=== PATIENT | female | born 1990 | race Asian ===

== ENCOUNTER 2017-01-03 18:40 | Outpatient (CLI) | payer BC ==
[~2017-01-03] VITALS: Ht 157.5 cm; Wt 70.5 kg
[2017-01-03 18:44] VITALS: BP 110/66
[2017-01-03] MEDS ORDERED: PREN1TAB60 PO (18:44)
== END 2017-01-03 20:15 | disposition home or self-care (01) ==
LOC: LDOP 18:40
PROVIDERS: ATTEND Student in an Organized Health Care Education/Training Program
DX: O26.892 Other specified pregnancy related conditions, second trimester (principal); O46.92 Antepartum hemorrhage, unspecified, second trimester; R10.9 Unspecified abdominal pain; Z3A.20 20 weeks gestation of pregnancy
CPT/HCPCS: 59025; 81003; 87086; 99201; G0463

== ENCOUNTER 2017-05-05 17:33 | Outpatient (CLI) | payer BC ==
[~2017-05-05] VITALS: Ht 157.5 cm; Wt 79.0 kg
[~2017-05-05 17:33] MED LIST: PREN1TAB60 PO
[2017-05-05 17:58] VITALS: BP 109/68
== END 2017-05-05 19:45 | disposition home or self-care (01) ==
LOC: LDOP 17:33
PROVIDERS: ATTEND Obstetrics & Gynecology
DX: O36.8130 Decreased fetal movements, third trimester, not applicable or unspecified (principal); O62.9 Abnormality of forces of labor, unspecified; Z3A.38 38 weeks gestation of pregnancy
CPT/HCPCS: 59025; 99211; G0463

== ENCOUNTER 2017-05-06 00:33 | Inpatient (IN) | payer BC ==
[~2017-05-06] VITALS: Ht 157.5 cm; Wt 79.1 kg
[2017-05-06] MEDS ORDERED: D5%-LACTATED RINGERS 1,000 ML IV SCH (00:50)
[2017-05-06] MEDS ORDERED: OXYTOCIN 30U/ 0.9% NaCL 500ML 500 ML IV ONE (00:50)
[2017-05-06] MEDS ORDERED: NEWBORN KIT ONE (00:56)
[2017-05-06] MEDS ORDERED: OXYTOCIN 30U/ 0.9% NaCL 500ML 500 ML ONE ×3 (00:56→13:17)
[2017-05-06] MEDS ORDERED: FENTANYL PF 100 MCG/2ML IV PRN (01:00)
[2017-05-06] MEDS ORDERED: FENTANYL PF 100 MCG/2ML IVPush PRN (01:00)
[2017-05-06] MEDS ORDERED: ALUMINUM/MAG/SIMETHICONE 30 ML UDC PO PRN (01:00)
[2017-05-06] MEDS ORDERED: LACTATED RINGERS 1,000 ML IVBOLUS PRN ×2 (01:00→03:30)
[2017-05-06] MEDS ORDERED: ONDANSETRON 2MG/ML, 2ML IVPush PRN (01:00)
[2017-05-06] MEDS ORDERED: CALCIUM CARBONATE 500 MG TAB.CHEW PO PRN (01:00)
[2017-05-06] MEDS: LACTATED RINGERS 1,000 ML IV SCH ×5 (01:09→19:23)
[2017-05-06 01:16] LABS: HEMATOCRIT 38.1 % (34.6-47.8); WHITE BLOOD COUNT 14.4 x10^3/uL (3.4-10)
[2017-05-06 01:33] VITALS: BP 133/83
[2017-05-06] MEDS ORDERED: FENTANYL PF 100 MCG/2ML ONE (02:09)
[2017-05-06] MEDS ORDERED: FENTANYL/BUPIV./NS/PF 250 ML EPIDCONT SCH (03:23)
[2017-05-06] MEDS ORDERED: BUPIVACAINE/PF 0.25% ONE (03:25)
[2017-05-06] MEDS ORDERED: EPHEDRINE 50 MG/ML, 1ML IVPush PRN (03:30)
[2017-05-06] MEDS ORDERED: NALOXONE 0.4 MG/ML, 1ML IVPush PRN (03:30)
[2017-05-06] MEDS ORDERED: OXYTOCIN 30U/ 0.9% NaCL 500ML 500 ML IV PRN (10:08)
[2017-05-06] MEDS ORDERED: MISOPROSTOL 200 MCG TABLET ONE (11:35)
[2017-05-06] MEDS ORDERED: LIDOCAINE 1%, 20ML ONE (11:35)
[2017-05-06] MEDS ORDERED: HYDROcodone/APAP 5/325 TABLET PO PRN ×2 (13:00)
[2017-05-06] MEDS ORDERED: ONDANSETRON 2MG/ML, 2ML IV PRN (13:00)
[2017-05-06] MEDS ORDERED: MISOPROSTOL 200 MCG TABLET PR PRN (13:00)
[2017-05-06] MEDS ORDERED: ACETAMINOPHEN 325 MG TABLET PO PRN (13:00)
[2017-05-06] MEDS ORDERED: METHYLERGONOVINE 0.2 MG/ML IM PRN (13:00)
[2017-05-06] MEDS: OXYTOCIN 30U/ 0.9% NaCL 500ML 500 ML IV SCH ×2 (13:33→22:33)
[2017-05-06 14:30] VITALS: BP 123/81
[2017-05-06 16:25] VITALS: BP 134/81
[2017-05-06] MEDS: IBUPROFEN 600 MG TABLET PO PRN (17:14)
[2017-05-06 19:40] VITALS: BP 119/74
[2017-05-06 20:28] LABS: HEMATOCRIT 35.3 % (34.6-47.8); HEMOGLOBIN 12.1 g/dL (11.7-16.4); WHITE BLOOD COUNT 25.7 x10^3/uL (3.4-10)
[2017-05-06 23:50] VITALS: BP 104/71
[2017-05-07] MEDS: IBUPROFEN 600 MG TABLET PO PRN ×3 (02:28→15:45)
[2017-05-07] MEDS: DOCUSATE 100 MG CAPSULE PO PRN ×2 (02:28→09:30)
[2017-05-07] MEDS: LACTATED RINGERS 1,000 ML IV SCH ×3 (03:23→19:23)
[2017-05-07] MEDS ORDERED: MEASLES,MUMPS&RUBELLA VACC/PF 0.5 ML SQ-VACC ONE ×3 (05:00→22:00)
[2017-05-07 07:15] VITALS: BP 98/62
[2017-05-07] MEDS: OXYTOCIN 30U/ 0.9% NaCL 500ML 500 ML IV SCH ×2 (08:33→18:33)
[2017-05-07] MEDS: PRENATAL VIT/IRON/FA 1 EACH TABLET PO SCH (09:30)
[2017-05-07 12:10] VITALS: BP 121/70
[2017-05-07 21:15] VITALS: BP 112/82
[2017-05-08] MEDS: IBUPROFEN 600 MG TABLET PO PRN ×2 (00:20→08:20)
[2017-05-08] MEDS ORDERED: ONDANSETRON 2MG/ML, 2ML IV PRN (03:30)
[2017-05-08] MEDS ORDERED: ACETAMINOPHEN 325 MG TABLET PO PRN (03:30)
[2017-05-08] MEDS ORDERED: HYDROcodone/APAP 5/325 TABLET PO PRN ×2 (03:30)
[2017-05-08] MEDS: PRENATAL VIT/IRON/FA 1 EACH TABLET PO SCH (08:20)
[2017-05-08] MEDS: DOCUSATE 100 MG CAPSULE PO PRN (08:20)
[2017-05-08] MEDS ORDERED: IBUP-1222 PO (11:13)
== END 2017-05-08 12:22 | disposition home or self-care (01) | DRG 775 ==
LOC: LDOP 00:33 → LDIP 00:57 → 2NW 14:35
PROVIDERS: ADMIT Obstetrics & Gynecology; ATTEND Obstetrics & Gynecology
PROC: 10E0XZZ Delivery of Products of Conception, External Approach (ICD-10-PCS; principal; 2017-05-06)
PROC: 0HQ9XZZ Repair Perineum Skin, External Approach (ICD-10-PCS; 2017-05-06)
PROC: 3E0S3CZ (ICD-10-PCS; 2017-05-06)
PROC: 00HU33Z Insertion of Infusion Device into Spinal Canal, Percutaneous Approach (ICD-10-PCS; 2017-05-06)
DX: O36.8130 Decreased fetal movements, third trimester, not applicable or unspecified (principal); O69.81X0 Labor and delivery complicated by cord around neck, without compression, not applicable or unspecified; Z37.0 Single live birth; O70.0 First degree perineal laceration during delivery; Z3A.38 38 weeks gestation of pregnancy; Z88.2 Allergy status to sulfonamides; Z88.1 Allergy status to other antibiotic agents; Z23 Encounter for immunization
CPT/HCPCS: 36415; 82803; 85025; 86850; 86900; J2590; J7120